=== PATIENT | male | born 1990 ===

== ENCOUNTER 2017-06-15 19:41 | Emergency (ER) | payer SELFPAY ==
[2017-06-15 19:54] VITALS: BP 145/87; PULSE 71; RESP 20; TEMP 98; O2SAT 100
--- NOTE | 2017-06-15 20:12 | C.PDOC ---
History Of Present Illness 26 year old male with no significant PMHx presents to the ED for evaluation of right sided neck pain radiating to right arm associated with tingling in the right hand digits for 4-5 days. Patient notes pain began after he changed his pillow. Patient denies trauma, injury, headache, dizziness, chest pain, shortness of breath, denies deformity to RUE, weakness, vascular deficits, denies any other complaints at this time. Time Seen by Provider: 06/15/17 19:42 Chief Complaint (Nursing): Upper Extremity Problem/Injury History Per: Patient History/Exam Limitations: no limitations Onset/Duration Of Symptoms: Days (4-5 days ) Current Symptoms Are (Timing): Still Present Quality: "Pain" Exacerbating Factor(s): Nothing Recent travel outside of the [place]: No Past Medical History Reviewed: Historical Data, Nursing Documentation, Vital Signs Vital Signs: Last Vital Signs Temp 98 F 06/15/17 19:47 Pulse 71 06/15/17 19:47 Resp 20 06/15/17 19:47 BP 145/87 06/15/17 19:47 Pulse Ox 100 06/15/17 20:15 Family History: States: Unknown Family Hx - Social History Hx Alcohol Use: No Hx Substance Use: No - Immunization History Hx Tetanus Toxoid Vaccination: No Hx Influenza Vaccination: No Hx Pneumococcal Vaccination: No Review Of Systems Constitutional: Negative for: Fever, Chills Cardiovascular: Negative for: Chest Pain, Palpitations Respiratory: Negative for: Cough, Shortness of Breath Gastrointestinal: Negative for: Nausea, Vomiting Musculoskeletal: Positive for: Neck Pain, Arm Pain (right arm pain radiating from neck ) Neurological: Positive for: Other (tingling in the right arm ). Negative for: Headache, Dizziness Physical Exam - Physical Exam Appears: Well, Non-toxic, No Acute Distress Skin: Warm, Dry, No Rash Head: Normacephalic Eye(s): bilateral: PERRL Ear(s): Bilateral: Normal Nose: No Flaring, No Discharge, No Deformity, No Tenderness Oral Mucosa: Moist Neck: Normal ROM, Trachea Midline, No Midline Cervical Tenderness, Paracervical Tenderness (right sided, extends to right upper back with mild muscle spasm.), No Step Off Deformity, Supple Cardiovascular: Rhythm Regular, No Murmur, No JVD Respiratory: No Rales, No Rhonchi, No Wheezing, Other (clear to auscultation bilaterally ) Extremity: Normal ROM (RUE), Tenderness (superior right shoulder tenderness), Capillary Refill (<2 seconds ), No Deformity, No Swelling Neurological/Psych: Oriented x3, Normal Speech, Normal Motor, Normal Sensation, Normal Reflexes ED Course And Treatment O2 Sat by Pulse Oximetry: 100 (RA) Pulse Ox Interpretation: Normal - Other Rad C-spine X-Ray: Interpreted by Me, Viewed By Me Interpretation: (-) acute fx or sublux Right shoulder X-Ray: Interpreted by Me, Viewed By Me Interpretation: (-) acute fx or dislocation Progress Note: Cervical spine and right shoulder XR were ordered. Patient was given Motrin. On re-eval, pt is afebrile, hemodynamicaly stable. Non-toxic. AMbulatory in ED with stable giat. PUlsEOx 100% RA. Neck: Supple, (-) midline tenderness, (-) JVD, (-) carotid bruits. Lungs: CTA B/L, BS equal B/L. CVS: (+ )S1S2, reg. RUE: exam c/w mild shoulder tenderness/upper back tenderness w.mild muscle spasm. FAROM, no neuorvascular deficits. Neuorlogicaly intact. Imaging review and appears normal. PT has clinical findings c/w cervical radiculopathy. Pt advised. re.f to F/u with PMD, Ortho in 2-3 days for re- eval. return if any new changes. Disposition Counseled Patient/Family Regarding: Studies Performed, Diagnosis, Need For Followup, Rx Given - Disposition Referrals: [facility] [Outside] Disposition: HOME/ ROUTINE Disposition Time: 20:25 Condition: STABLE Additional Instructions: TAKE MEDICATION PRESCRIBED FOLLOW UP WITH PMD, ORTHOPEDIST IN 2-3 DAYS FOR RE-EVALUATION. RETURN TO ED IF ANY WORSENING OR NEW CHANGES. Prescriptions: Ibuprofen [Motrin Tab] 600 mg PO Q8 #20 tab Methocarbamol [Robaxin] 500 mg PO TID #14 tab Instructions: Cervical Radiculopathy (ED) Forms: [employer] (Portuguese) - Clinical Impression Clinical Impression: Cervical radiculopathy - PA / [employer] / Resident Statement MD/DO has reviewed & agrees with the documentation as recorded. - Scribe Statement The provider has reviewed the documentation as recorded by the Scribe Ladonna Bartholomew All medical record entries made by the Era were at my direction and personally dictated by me. I have reviewed the chart and agree that the record accurately reflects my personal performance of the history, physical exam, medical decision making, and the department course for this patient. I have also personally directed, reviewed, and agree with the discharge instructions and disposition.
--- NOTE | 2017-06-16 10:38 | RAD ---
PROCEDURE: Cervical Spine Radiographs. HISTORY: Pain. COMPARISON: None. FINDINGS: BONES: Vertebral bodies maintained in height. Normal alignment maintained. Reversal of normal lordotic curvature may indicate muscular spasm. Atlantoaxial articulation and odontoid process are intact. DISC SPACES: Normal. SOFT TISSUES: Normal. No prevertebral soft tissue swelling. OTHER FINDINGS: None. IMPRESSION: No evidence of fracture or dislocation. Possible muscular spasm.
--- NOTE | 2017-06-16 13:14 | RAD ---
Right shoulder three views History: Shoulder pain. Comparison: None available. Findings: No evidence for acute displaced fracture or dislocation. Glenohumeral and acromioclavicular joint spaces appear preserved. Impression: Negative acute. If pain persists, consider MRI.
== END 2017-06-15 20:51 | disposition home or self-care (01) ==
LOC: C.ER 19:41
DX: M54.12 Radiculopathy, cervical region (principal)